=== PATIENT | female | born 1965 | race Caucasian/White ===

== ENCOUNTER 2023-03-03 10:55 | Inpatient (IN) ==
[2023-03-03] MEDS ORDERED: IOPAMIDOL 100 ML BOTTLE IV ONE (10:56)
[2023-03-03] MEDS ORDERED: ONDANSETRON 4 MG/2 ML VIAL IV ONE (11:12)
--- NOTE | 2023-03-03 11:22 | Emergency Department Note ---
HPI General Chief complaint: Headache Stated complaint: headache Time Seen by Provider: 03/03/23 10:57 Source: patient Mode of arrival: ambulatory Limitations: no limitations History of Present Illness HPI Narrative: Narrative: 57-year-old female with a history of lung cancer that is metastasized to her brain presents to the emergency department complaining of increasing headache over the past 3 days. The headache is over her entire head. It is constant and very painful. She complains of photophobia and phonophobia. She is unsure if she has had any vision changes or double vision. She denies fever or focal weakness. She complains of nausea without vomiting. Patient has been seeing an oncologist in [place] and just completed chemotherapy, this unfortunately was not successful. She has an appointment with a radiation oncologist in [place] and will be starting radiation soon. Patient does take oral morphine at home for the pain associated with her cancer. Her primary care provider is planning on increasing her dose, it is not yet been increased. Patient was initially diagnosed with lung cancer in 2018. It has since metastasized to her brain. She initially was treated with chemotherapy through [facility] oncology. Her cancer actually spread after that. Patient then researched a cancer center in [place] (cancer treatment of [facility]) and went there for treatment. She received chemotherapy there. After that she found a place in [place] and received 3 weeks of once weekly injections of chemotherapy and the tumors. She returned to this area just a few days ago and is supposed to have a follow-up CT scan a month after that treatment. Patient has been in contact with cancer treatment of [place] in [place] and is planning on following up there for radiation therapy, however she has not yet scheduled with an oncologist there. Related Data Home Medications Medication Instructions Recorded Confirmed albuterol sulfate 90 mcg/actuation 2 puff inhalation QIDP PRN Pain 03/03/23 03/03/23 aerosol inhaler bupropion HCl 300 mg 24 hr tablet, 300 mg PO QAM 03/03/23 03/03/23 extended release gabapentin 300 mg capsule 300 mg PO TID 03/03/23 03/03/23 morphine 15 mg immediate release 15 mg PO TID 03/03/23 03/03/23 tablet ondansetron HCl 8 mg tablet 8 mg PO TIDP PRN nausea 03/03/23 03/03/23 Allergies Allergy/AdvReac Type Severity Reaction Status Date / Time codeine Allergy Intermediate Hives Verified 03/03/23 13:26 hydrocodone Allergy Intermediate Hives Verified 03/03/23 13:26 oxycodone Allergy Intermediate Hives Verified 03/03/23 13:26 Review of Systems ROS ROS Narrative: Narrative: All systems ED: reviewed and negative except as stated. [facility] Narrative Patient History Narrative: Narrative: Medical/Surgical/Family History All Active Problems (Updated 03/03/23 @ 17:33 by Becka Banuelos PA-C) Headache (Acute) Chronic intractable headache (Acute) Fibromyalgia (Acute) Tobacco use disorder (Chronic) Bilateral hand pain (Acute) Benign skin lesion of multiple sites (Chronic) Cellulitis (Chronic) Pain in joint, multiple sites (Acute) Prediabetes (Chronic) Joint swelling (Chronic) Rheumatoid factor positive (Chronic) Medical History (Updated 03/03/23 @ 17:33 by Becka Banuelos PA-C) Benign skin lesion of multiple sites Bilateral hand pain Cellulitis Fibromyalgia Joint swelling Osteoarthritis of hands, bilateral Pain in joint, multiple sites Prediabetes Rheumatoid factor positive Tobacco use disorder Surgical History History of tonsillectomy Family History Mother Cancer Social History Smoking Status: Former smoker Alcohol Intake Frequency: does not drink Substance Use: does not use Exam Narrative Narrative: Narrative: General Limitations: no limitations General appearance: Present other (Patient is laying in a dark room with her eyes covered. She is cooperative and understands what is going on.) Head Head: Present atraumatic Eye Eye: Present normal appearance, PERRL and EOMI ENT ENT: Present normal oropharynx, mucous membranes moist and TM's normal bilaterally Neck Neck: Present other (Palpable tumor on the right side of patient's neck extending from the right clavicle. According to patient this is not new.) Chest Chest: Present normal inspection Respiratory Respiratory: Present normal lung sounds bilaterally Cardiovascular Cardiovascular: Present normal heart sounds Neurological Neurological: Present alert, oriented X3, CN II-XII intact and motor sensory deficit Psychiatric Psychiatric: Present normal affect Skin Skin: Present warm (WNL) Course Vital Signs Vital signs: Vital Signs Temperature 98.6 F 03/03/23 10:56 Pulse Rate 97 H 03/03/23 10:56 Respiratory Rate 19 03/03/23 10:56 Blood Pressure 131/81 03/03/23 10:56 Pulse Oximetry (%) 98 03/03/23 10:56 Oxygen Delivery Method Room Air 03/03/23 10:56 Temperature 98.6 F 03/03/23 10:56 Pulse Rate 90 03/03/23 13:16 Respiratory Rate 19 03/03/23 10:56 Blood Pressure 125/64 03/03/23 13:16 Pulse Oximetry (%) 96 03/03/23 13:16 Oxygen Delivery Method Room Air 03/03/23 10:56 MDM MDM Narrative Medical decision making narrative: Narrative: Patient has severe headache likely due to tumor. CT scan is ordered to evaluate for hydrocephalus. Patient is treated with IV morphine for pain and IV Zofran for nausea. CT scan shows changes consistent with mets to the brain. Patient did not get any pain relief with after 3 doses of morphine. A long discussion was had with the patient regarding prognosis of lung cancer with brain metastasis. Patient does not expect resolution of the cancer, but would like to be comfortable. I have discussed the patient with the hospitalist who is agreed to admit her for pain control. Lab Data Labs: Lab Results 03/03/23 Range/Units 12:08 Urine Color Straw Urine Appearance Clear (Clear) Urine pH 9.0 (5.0-9.0) Ur Specific [place] 1.006 (1.000-1.035) Urine Protein Negative (Negative) mg/dL Urine Glucose (UA) Negative (Negative) mg/dL Urine Ketones Negative (Negative) mg/dL Urine Occult Blood Negative (Negative) mg/dL Urine Nitrate Negative (Negative) Urine Bilirubin Negative (Negative) mg/dL Urine Urobilinogen Negative mg/dL Ur Leukocyte Esterase Negative (Negative) /uL Urine RBC 0 (0-3) /hpf Urine WBC < 1 (0-4) /hpf Ur Squamous Epith Cells 1 (0-4) /hpf Urine Bacteria None (0) /hpf Urine Mucus Few A (None) /hpf Ur Culture Indicated? No Discharge Plan Patient/Caregiver Discharge Instructions Pt seen by PRINCIPAL CYBER ENGINEER/PA only: Yes Clinical Impression: Headache, Chronic intractable headache Patient Disposition: Xfer As Inpt ([facility]) Follow up with: Demetria Moser [Primary Care Provider] - Prescriptions: No Action morphine 15 mg tablet 15 mg PO TID albuterol sulfate 90 mcg/actuation HFA aerosol inhaler 2 puff INHALATION QIDP PRN (Reason: Pain) bupropion HCl 300 mg tablet extended release 24 hr 300 mg PO QAM gabapentin 300 mg capsule 300 mg PO TID ondansetron HCl 8 mg tablet 8 mg PO TIDP PRN (Reason: nausea)
[2023-03-03] MEDS: morphine 2 MG/ML VIAL IV PRN ×5 (12:09→15:33)
--- NOTE | 2023-03-03 14:07 | Cat Scan Report ---
CLINICAL INFORMATION: History of lung carcinoma. Evaluate for brain metastases. Headache COMPARISON: Brain MRI 12/28/2019 TECHNIQUE: 2.5 mm helical slices were obtained in the skull base to vertex prior to and after the administration of 80 cc of Isovue-370. Following reconstruction, axial reformatted images were reviewed at bone and parenchymal windows. The exam was performed using radiation dose optimization techniques including, but not limited to, automated exposure control, adjustment of the mA and/or kV according to patient size and use of iterative reconstruction technique. FINDINGS: The ventricles, sulci, fissures, and cisterns are normal in size and configuration. No extra-axial fluid collections are identified. Scattered enhancing cerebral lesions are compatible with metastases from known lung carcinoma: 11.6 mm ring-enhancing lesion in the posterior right temporal lobe with moderate surrounding vasogenic edema, 18 mm enhancing lesion with adjacent vasogenic edema in the posterior right frontal lobe near vertex, 7 mm enhancing lesion with minimal surrounding edema in the posterior left frontal lobe near vertex and 6 mm in the left frontal parietal junction with no significant edema. Bone windows show no osseous abnormality. IMPRESSION: Scattered enhancing cerebral lesions compatible with metastatic disease from known lung carcinoma. These are new from the 2019 brain MRI Interpreted and Authenticated by: Woo Reagan 03/03/23
[2023-03-03 14:09] LABS: Appearance,Urine CLEAR (Clear); Bilirubin,Urine Negative (Negative); Color,Urine STRAW; Culture Indicated,Urine No; Glucose,Urine (UA) Negative (Negative); Ketones,Urine Negative (Negative); Leukocyte Esterase,Urine Negative /uL (Negative); Mucus,Urine FEW /hpf; Nitrate,Urine Negative (Negative); Protein,Urine Negative (Negative); Specific Gravity,Urine 1.006 (1.000-1.035); Urine Blood Negative (Negative); Urine RBC 0 /hpf (0-3); Urine Squamous Epithelial Cell 1 /hpf (0-4); Urine WBC < 1 /hpf (0-4); Urobilinogen,Urine Negative
--- NOTE | 2023-03-03 16:33 | Internal Med History&Physical ---
HPI History of Present Illness Patient information: Note initiated : 03/03/23 at 4:21 pm Service Date, if different from initiated Date: [] Patient: Cinthia Melgar 57 y/o F admitted on for headache. Chief Complaint: [] History of present illness: Ms. Melgar is a 57 year old female with a history of lung cancer with brain metastasis presented to the emergency department for severe headache. The patient has received chemotherapy for lung cancer however the cancer has progressed. The plan was for the patient to meet with a radiation oncologist to discuss palliative radiation treatment. The patient has been taking oral morphine for pain secondary to cancer however it has become less and less effective. In the emergency department, the patient had a CT head with and without IV contrast that showed scattered enhancing cerebral lesions compatible with metastatic disease. Hospital medicine was consulted for admission for pain control. Goals of care were discussed with the patient at bedside in detail. I told the patient that if she wanted to pursue radiation therapy she would need to be transferred to another hospital as we do not have that capability. The patient says that she just wants her pain controlled and would like to discharge home with hospice if her pain can be controlled on oral medications. The patient clearly stated that she would not want to be resuscitated or intubated. We discussed dexamethasone for cerebral edema associated with brain metastasis, the patient is okay for a trial of dexamethasone. The patient will be admitted for comfort cares and a trial of dexamethasone. Review of systems Neurological: Severe diffuse headache, no focal weakness or numbness Psychiatric: no anxiety or depression Physical exam Head: Atraumatic, normal inspection. Eyes: normal appearance, no scleral icterus. Neck: full ROM Respiratory: no respiratory distress. Cardiovascular: normal rate GI/Abdominal: Nondistended Extremities: full range of motion, nontender. Neurological: intact motor, intact sensation. Psychiatric: Anxious PFSH PFSH All Active Problems (Updated 10/21/18 @ 13:40 by Blake Thomas MD) Fibromyalgia (Acute) Tobacco use disorder (Chronic) Bilateral hand pain (Acute) Benign skin lesion of multiple sites (Chronic) Cellulitis (Chronic) Pain in joint, multiple sites (Acute) Prediabetes (Chronic) Joint swelling (Chronic) Rheumatoid factor positive (Chronic) Medical History (Updated 10/21/18 @ 13:40 by Blake Thomas MD) Benign skin lesion of multiple sites Bilateral hand pain Cellulitis Fibromyalgia Joint swelling Osteoarthritis of hands, bilateral Pain in joint, multiple sites Prediabetes Rheumatoid factor positive Tobacco use disorder Surgical History History of tonsillectomy Family History Mother Cancer Social History (Updated 10/21/18 @ 13:44 by Blake Thomas MD) marital status: occupational status: employed physical activity: walking smoking status: Former smoker alcohol intake frequency: does not drink substance use type: does not use MEDS/ALLERGIES Home Medications and Allergies Home Medications Medication Instructions Recorded Confirmed Type akibnso-uwbntmhxtwlpa-ltdghadt See Rx Instructions PO .COMPLEX PRN 09/20/18 10/21/18 History [Pamprin Max] meloxicam 15 mg tablet 15 mg PO QDAY 09/20/18 10/21/18 History tramadol 50 mg tablet 50 mg PO TID PRN pain 09/20/18 10/21/18 History morphine 15 mg immediate release 15 mg PO TID 03/03/23 03/03/23 History tablet Allergies Allergy/AdvReac Type Severity Reaction Status Date / Time codeine Allergy Intermediate Hives Verified 03/03/23 13:26 hydrocodone Allergy Intermediate Hives Verified 03/03/23 13:26 oxycodone Allergy Intermediate Hives Verified 03/03/23 13:26 EXAM Constitutional Vitals: Temp Pulse Resp BP Pulse Ox O2 Del Method 98.6 F 76 19 128/84 98 Room Air 03/03/23 10:56 03/03/23 15:46 03/03/23 10:56 03/03/23 15:46 03/03/23 15:46 03/03/23 10:56 DATA Data Completed and Pending Labs: Labs from last 24 hours 03/03/23 12:08 Urine Color Straw Urine Appearance Clear Urine pH 9.0 Ur Specific [place] 1.006 Urine Protein Negative Urine Glucose (UA) Negative Urine Ketones Negative Urine Occult Blood Negative Urine Nitrate Negative Urine Bilirubin Negative Urine Urobilinogen Negative Ur Leukocyte Esterase Negative Urine RBC 0 Urine WBC < 1 Ur Squamous Epith Cells 1 Urine Bacteria None Urine Mucus Few A Ur Culture Indicated? No A/P Narrative A/P Narrative: Assessment: 57-year-old female with a history of metastatic lung carcinoma inc luding brain metastasis admitted for comfort cares for intractable headache likely secondary to enlarging brain metastasis. Plan -Admit for pain control with multimodal analgesics. -Dexamethasone IV for cerebral edema secondary to brain metastasis. -CODE STATUS: DNR/DNI -Disposition: Admit to inpatient MedSurg, if pain can be controlled with oral medications then the patient would like to discharge home with hospice. Time Spent With Patient Time: Total time spent is greater than 50% in coordination of care (as documented) at patient's floor/unit and/or counseling patient:
[2023-03-03] MEDS ORDERED: ALBUTEROL SULFATE 2.5 MG/3 ML NEBULIZER NEB PRN (17:49)
[2023-03-03] MEDS ORDERED: LORazepam 2 MG/ML VIAL IV PRN (17:49)
[2023-03-03] MEDS ORDERED: DEXAMETHASONE 10 MG/ML VIAL IV ONE (17:49)
[2023-03-03] MEDS ORDERED: ACETAMINOPHEN 325 MG TABLET PO PRN (17:49)
[2023-03-03] MEDS ORDERED: ONDANSETRON 4 MG/2 ML VIAL IV PRN (17:49)
[2023-03-03] MEDS: KETOROLAC 30 MG/ML VIAL IV SCH (18:41)
[2023-03-03] MEDS: HYDROmorphone 1 MG/ML SYRINGE IV PRN (18:42)
[2023-03-03] MEDS: ONDANSETRON 4 MG/2 ML VIAL IV PRN (18:47)
[2023-03-03] MEDS: SENNOSIDES/DOCUSATE SODIUM 1 TAB TABLET PO SCH (20:23)
[2023-03-03] MEDS: morphine 15 MG TABLET PO PRN (20:23)
[2023-03-03] MEDS: 0.9 % SODIUM CHLORIDE 10 ML SYRINGE IV SCH (20:24)
[2023-03-03] MEDS ORDERED: 0.9 % SODIUM CHLORIDE 10 ML SYRINGE IV SCH (22:00)
[2023-03-04] MEDS: KETOROLAC 30 MG/ML VIAL IV SCH ×4 (00:04→17:40)
[2023-03-04] MEDS: DEXAMETHASONE 4 MG/ML VIAL IV SCH ×5 (00:04→23:05)
[2023-03-04] MEDS: morphine 15 MG TABLET PO PRN ×5 (01:51→20:59)
[2023-03-04] MEDS: HYDROmorphone 1 MG/ML SYRINGE IV PRN ×9 (04:35→21:04)
[2023-03-04] MEDS: 0.9 % SODIUM CHLORIDE 10 ML SYRINGE IV SCH ×3 (05:59→21:34)
[2023-03-04] MEDS: OMEPRAZOLE 20 MG CAPSULE PO SCH (08:33)
[2023-03-04] MEDS: POLYETHYLENE GLYCOL 3350 17 GM PACKET PO SCH (08:33)
[2023-03-04] MEDS: SENNOSIDES/DOCUSATE SODIUM 1 TAB TABLET PO SCH ×2 (08:34→22:12)
--- NOTE | 2023-03-04 10:05 | Internal Med Progress Note ---
SUBJECTIVE Subjective Patient information: Note initiated : 03/04/23 at 10:02 am Service Date, if different from initiated Date: [] Patient: Cinthia Melgar 57 y/o F admitted on 03/03/23 for headache. Chief Complaint: [] Interval history: Ms. Melgar is a 57 year old female with a history of lung cancer with brain metastasis presented to the emergency department for severe headache. The patient has received chemotherapy for lung cancer however the cancer has progressed. The plan was for the patient to meet with a radiation oncologist to discuss palliative radiation treatment. The patient has been taking oral morphine for pain secondary to cancer however it has become less and less effective. In the emergency department, the patient had a CT head with and without IV contrast that showed scattered enhancing cerebral lesions compatible with metastatic disease. Hospital medicine was consulted for admission for pain control. Goals of care were discussed with the patient at bedside in detail. I told the patient that if she wanted to pursue radiation therapy she would need to be transferred to another hospital as we do not have that capability. The patient says that she just wants her pain controlled and would like to discharge home with hospice if her pain can be controlled on oral medications. The patient clearly stated that she would not want to be resuscitated or intubated. We discussed dexamethasone for cerebral edema associated with brain metastasis, the patient is okay for a trial of dexamethasone. The patient will be admitted for comfort cares and a trial of dexamethasone. 03/04 Patient's headache has improved since yesterday, requiring high doses of IV Dilaudid. The patient asked to speak with hospice, case management will look into setting up an appointment. We will continue the patient's current pain regimen unchanged today. Physical exam Head: Atraumatic, normal inspection. Eyes: normal appearance, no scleral icterus. Neck: full ROM Respiratory: no respiratory distress. Cardiovascular: normal rate GI/Abdominal: Nondistended Extremities: full range of motion, nontender. Neurological: intact motor, intact sensation. Psychiatric: Anxious Constitutional Vitals: Vital Signs Temp Pulse Resp BP Pulse Ox O2 Del Method O2 Flow Rate 98.3 F 86 14 113/73 99 Nasal Cannula 2 03/03/23 19:00 03/04/23 08:00 03/04/23 08:00 03/04/23 08:00 03/04/23 08:00 03/04/23 08:00 03/04/23 08:00 Period Temp Pulse Resp BP Sys/Juares Pulse Ox O2 Del Method O2 Flow Rate Last 24 Hr 98.3 F-99.1 F 65-97 14-19 113-137/64-94 91-99 Nasal Cannula- Room Air 2 Intake and Output 03/03/23 03/04/23 03/04/23 19:59 03:59 11:59 Intake Total 500 Balance 500 Weight 68.946 kg 68.946 kg Intake & Output: Intake & Output 03/03/23 03/04/23 03/04/23 19:59 03:59 11:59 Intake Total 500 Balance 500 Weight 68.946 kg 68.946 kg Intake: Oral 500 Other: Meal Chicken noodle soup/jello Percent of Meal Consumed 100% Feeding Ability Independent # Voids 2 OBJ DATA Labs Labs: Abnormal Lab Results 03/03/23 12:08 Urine Mucus Few A Meds: Medications Acetaminophen (Acetaminophen 325 Mg Tablet) 650 mg PO Q6HP PRN; Protocol PRN Reason: Per Pain Protocol/Fever > 101 Albuterol Sulfate (Albuterol Sulfate 2.5 Mg/3 Ml Nebulizer) 2.5 mg NEB Q2HP PRN PRN Reason: Shortness Of Breath Dexamethasone (Dexamethasone 4 Mg/Ml Vial) 4 mg IV Q6H [facility] Last Admin: 03/04/23 05:58 Dose: 4 mg Hydromorphone HCl (Hydromorphone 1 Mg/Ml Syringe) 0.5 - 2 mg IV Q1HP PRN; Protocol PRN Reason: Per Pain Protocol Last Admin: 03/04/23 08:45 Dose: 2 mg Ketorolac Tromethamine (Ketorolac 30 Mg/Ml Vial) 15 mg IV Q6 KYLIE Stop: 03/05/23 12:01 Last Admin: 03/04/23 05:58 Dose: 15 mg Lorazepam (Lorazepam 2 Mg/Ml Vial) 0 mg IV Q1HP PRN; Protocol PRN Reason: ANXIETY/SEDATION Morphine Sulfate (Morphine 15 Mg Tablet) 30 mg PO Q4HP PRN; Protocol PRN Reason: Per Pain Protocol Last Admin: 03/04/23 07:32 Dose: 30 mg Omeprazole (Omeprazole 20 Mg Capsule) 40 mg PO ACB [facility] Last Admin: 03/04/23 08:33 Dose: 40 mg Ondansetron HCl (Ondansetron 4 Mg/2 Ml Vial) 4 mg IV Q4HP PRN; Protocol PRN Reason: Nausea And Vomiting Last Admin: 03/03/23 18:47 Dose: 4 mg Polyethylene Glycol (Polyethylene Glycol 3350 17 Gm Packet) 17 gm PO DAILY [facility] Last Admin: 03/04/23 08:33 Dose: 17 gm Senna/Docusate Sodium (Sennosides/Docusate Sodium 1 Tab Tablet) 1 tab PO BID [facility] Last Admin: 03/04/23 08:34 Dose: 1 tab Sodium Chloride (0.9 % Sodium Chloride 10 Ml Syringe) 10 ml IV Q8 [facility] Last Admin: 03/04/23 05:59 Dose: 10 ml A/P Narrative A/P Narrative: Assessment: 57-year-old female with a history of metastatic lung carcinoma including brain metastasis admitted for comfort cares for intractable headache likely secondary to enlarging brain metastasis. Plan -Multimodal analgesics for severe headache. -Dexamethasone IV for cerebral edema secondary to brain metastasis. -Case management following, hospice consult requested. -CODE STATUS: DNR/DNI -Disposition: Inpatient MedSurg for intractable pain, if pain can be controlled with oral medications then the patient would like to discharge home with hospice. Time Spent With Patient Time: Total time spent is greater than 50% in coordination of care (as documented) at patient's floor/unit and/or counseling patient:
[2023-03-04] MEDS ORDERED: diphenhydrAMINE 25 MG CAPSULE PO PRN (17:59)
[2023-03-05] MEDS: KETOROLAC 30 MG/ML VIAL IV SCH ×3 (03:17→12:39)
[2023-03-05] MEDS: DEXAMETHASONE 4 MG/ML VIAL IV SCH ×4 (05:49→23:04)
[2023-03-05] MEDS: OMEPRAZOLE 20 MG CAPSULE PO SCH (07:42)
--- NOTE | 2023-03-05 08:55 | Internal Med Progress Note ---
SUBJECTIVE Subjective Patient information: Note initiated : 03/05/23 at 8:52 am Service Date, if different from initiated Date: [] Patient: Cinthia Melgar 57 y/o F admitted on 03/03/23 for headache. Chief Complaint: [] Principal diagnosis: Metastatic lung CA Interval history: Ms. Melgar is a 57 year old female with a history of lung cancer with brain metastasis presented to the emergency department for severe headache. The patient has received chemotherapy for lung cancer however the cancer has progressed. The plan was for the patient to meet with a radiation oncologist to discuss palliative radiation treatment. The patient has been taking oral morphine for pain secondary to cancer however it has become less and less effective. In the emergency department, the patient had a CT head with and without IV contrast that showed scattered enhancing cerebral lesions compatible with metastatic disease. Hospital medicine was consulted for admission for pain control. Goals of care were discussed with the patient at bedside in detail. I told the patient that if she wanted to pursue radiation therapy she would need to be transferred to another hospital as we do not have that capability. The patient says that she just wants her pain controlled and would like to discharge home with hospice if her pain can be controlled on oral medications. The patient clearly stated that she would not want to be resuscitated or intubated. We discussed dexamethasone for cerebral edema associated with brain metastasis, the patient is okay for a trial of dexamethasone. The patient will be admitted for comfort cares and a trial of dexamethasone. 03/04 Patient's headache has improved since yesterday, requiring high doses of IV Dilaudid. The patient asked to speak with hospice, case management will look into setting up an appointment. We will continue the patient's current pain regimen unchanged today. 03/05: The patient was resting in bed while eating breakfast. She continues to complain of the headache. She is hoping to get whole brain radiation in an outpatient setting at [facility] next week. Constitutional Vitals: Vital Signs Temp Pulse Resp BP Pulse Ox O2 Del Method O2 Flow Rate 97.7 F 80 18 105/69 97 Nasal Cannula 2 03/05/23 07:39 03/05/23 07:39 03/05/23 07:39 03/05/23 07:39 03/05/23 07:39 03/05/23 07:39 03/05/23 07:39 Period Temp Pulse Resp BP Sys/Juares Pulse Ox O2 Del Method O2 Flow Rate Last 24 Hr 97.7 F-98.8 F 72-88 14-19 100-127/65-76 97-100 Nasal Cannula- Room Air 2-2 Intake and Output 03/04/23 03/05/23 03/05/23 19:59 03:59 11:59 Intake Total 1040 Balance 1040 Weight 69.967 kg Intake & Output: Intake & Output 03/04/23 03/05/23 03/05/23 19:59 03:59 11:59 Intake Total 1040 Balance 1040 Weight 69.967 kg Intake: Oral 1040 Other: # Voids 2 Head Head exam: Present atraumatic and normal inspection Eye Eye exam: Present normal appearance ENT ENT exam: Present mucous membranes moist, normal exam and normal external ear exam Neck Neck exam: Present normal inspection Respiratory Respiratory exam: Present normal respiratory exam Cardiovascular Cardiovascular exam: Present normal rate and rhythm GI/Abdominal GI/Abdominal exam: Present normal bowel sounds Back Exam Back exam: Present normal inspection Neurological Exam Neurological exam: Present alert and oriented X3 Skin Skin exam: Present intact and warm OBJ DATA Labs Labs: Abnormal Lab Results 03/03/23 12:08 Urine Mucus Few A Meds: Medications Acetaminophen (Acetaminophen 325 Mg Tablet) 650 mg PO Q6HP PRN; Protocol PRN Reason: Per Pain Protocol/Fever > 101 Albuterol Sulfate (Albuterol Sulfate 2.5 Mg/3 Ml Nebulizer) 2.5 mg NEB Q2HP PRN PRN Reason: Shortness Of Breath Dexamethasone (Dexamethasone 4 Mg/Ml Vial) 4 mg IV Q6H [facility] Last Admin: 03/05/23 05:49 Dose: 4 mg Diphenhydramine HCl (Diphenhydramine 25 Mg Capsule) 25 mg PO Q6HP PRN PRN Reason: Allergic Symptoms Last Admin: 03/04/23 18:31 Dose: 25 mg Hydromorphone HCl (Hydromorphone 1 Mg/Ml Syringe) 0.5 - 2 mg IV Q1HP PRN; Protocol PRN Reason: Per Pain Protocol Last Admin: 03/04/23 21:04 Dose: 2 mg Ketorolac Tromethamine (Ketorolac 30 Mg/Ml Vial) 15 mg IV Q6 KYLIE Stop: 03/05/23 12:01 Last Admin: 03/05/23 05:49 Dose: 15 mg Lorazepam (Lorazepam 2 Mg/Ml Vial) 0 mg IV Q1HP PRN; Protocol PRN Reason: ANXIETY/SEDATION Last Admin: 03/04/23 23:04 Dose: 2 mg Morphine Sulfate (Morphine 15 Mg Tablet) 30 mg PO Q4HP PRN; Protocol PRN Reason: Per Pain Protocol Last Admin: 03/04/23 20:59 Dose: 30 mg Omeprazole (Omeprazole 20 Mg Capsule) 40 mg PO ACB [facility] Last Admin: 03/05/23 07:42 Dose: 40 mg Ondansetron HCl (Ondansetron 4 Mg/2 Ml Vial) 4 mg IV Q4HP PRN; Protocol PRN Reason: Nausea And Vomiting Last Admin: 03/03/23 18:47 Dose: 4 mg Polyethylene Glycol (Polyethylene Glycol 3350 17 Gm Packet) 17 gm PO DAILY [facility] Last Admin: 03/04/23 08:33 Dose: 17 gm Senna/Docusate Sodium (Sennosides/Docusate Sodium 1 Tab Tablet) 1 tab PO BID [facility] Last Admin: 03/04/23 22:12 Dose: 1 tab Sodium Chloride (0.9 % Sodium Chloride 10 Ml Syringe) 10 ml IV Q8 [facility] Last Admin: 03/04/23 21:34 Dose: 10 ml A/P Narrative A/P Narrative: Assessment: 57-year-old female with a history of metastatic lung carcinoma including brain metastasis admitted for comfort cares for intractable headache likely secondary to enlarging brain metastasis. Plan -Multimodal analgesics for severe headache. -Dexamethasone IV for cerebral edema secondary to brain metastasis. -Case management following, hospice consult requested. -CODE STATUS: DNR/DNI -Disposition: Inpatient MedSurg for intractable pain, if pain can be controlled with oral medications then the patient would like to discharge home with hospice. Time Spent With Patient Time: Total time spent is greater than 50% in coordination of care (as documented) at patient's floor/unit and/or counseling patient: Subsequent: Total time with patient: 25 - 34 minutes
[2023-03-05] MEDS: SENNOSIDES/DOCUSATE SODIUM 1 TAB TABLET PO SCH ×2 (09:14→20:30)
[2023-03-05] MEDS: POLYETHYLENE GLYCOL 3350 17 GM PACKET PO SCH (09:14)
[2023-03-05] MEDS: morphine 15 MG TABLET PO PRN ×3 (09:23→20:08)
[2023-03-05] MEDS: 0.9 % SODIUM CHLORIDE 10 ML SYRINGE IV SCH ×3 (10:21→23:11)
[2023-03-05] MEDS: HYDROmorphone 1 MG/ML SYRINGE IV PRN ×3 (16:24→23:04)
[2023-03-06] MEDS: morphine 15 MG TABLET PO PRN ×3 (04:03→13:40)
[2023-03-06] MEDS: DEXAMETHASONE 4 MG/ML VIAL IV SCH ×2 (04:04→11:59)
[2023-03-06] MEDS: 0.9 % SODIUM CHLORIDE 10 ML SYRINGE IV SCH ×4 (06:38→14:18)
[2023-03-06] MEDS: HYDROmorphone 1 MG/ML SYRINGE IV PRN ×6 (07:47→13:39)
[2023-03-06] MEDS: OMEPRAZOLE 20 MG CAPSULE PO SCH (07:47)
[2023-03-06] MEDS: POLYETHYLENE GLYCOL 3350 17 GM PACKET PO SCH (09:23)
[2023-03-06] MEDS: SENNOSIDES/DOCUSATE SODIUM 1 TAB TABLET PO SCH (09:23)
--- NOTE | 2023-03-06 12:46 | Discharge Summary ---
Discharge Provider Provider IMPORTANT FOLLOW-UP INFORMATION FOR PCP: 1. Hospice will be established Thursday 2. Scripts filled for the weekend (Dilaudid, Morphine, and Lorazepam) Patient information: Note initiated : 03/06/23 at 12:46 pm Service Date, if different from initiated Date: [] Patient: Cinthia Melgar 57 y/o F admitted on 03/03/23 for headache. Chief Complaint: [] Date of admission: 03/03/23 17:31 Discharge date: 03/06/23 Primary care physician: Demetria Moser Consults: 03/03/23 14:25 Consult to Physician [CONS] Stat Comment: Consulting Provider: Dick Griggs Reason For Exam: Physician to Consult Attending physician on discharge: Jasmit Vish COURSE Hospital Course Hospital course: Interval history: Ms. Melgar is a 57 year old female with a history of lung cancer with brain metastasis presented to the emergency department for severe headache. The patient has received chemotherapy for lung cancer however the cancer has progressed. The plan was for the patient to meet with a radiation oncologist to discuss palliative radiation treatment. The patient has been taking oral morphine for pain secondary to cancer however it has become less and less effective. In the emergency department, the patient had a CT head with and without IV contrast that showed scattered enhancing cerebral lesions compatible with metastatic disease. Hospital medicine was consulted for admission for pain control. Goals of care were discussed with the patient at bedside in detail. I told the patient that if she wanted to pursue radiation therapy she would need to be transferred to another hospital as we do not have that capability. The patient says that she just wants her pain controlled and would like to discharge home with hospice if her pain can be controlled on oral medications. The patient clearly stated that she would not want to be resuscitated or intubated. We discussed dexamethasone for cerebral edema associated with brain metastasis, the patient is okay for a trial of dexamethasone. The patient will be admitted for comfort cares and a trial of dexamethasone. 03/04 Patient's headache has improved since yesterday, requiring high doses of IV Dilaudid. The patient asked to speak with hospice, case management will look into setting up an appointment. We will continue the patient's current pain regimen unchanged today. 03/05: The patient was resting in bed while eating breakfast. She continues to complain of the headache. She is hoping to get whole brain radiation in an outpatient setting at [facility] next week. 03/06: The patient will be discharged with home hospice that will open up on Thursday. Interim prescriptions will be filled for over the weekend. Discharge diagnosis: Metastatic lung cancer with brain metastasis Secondary discharge diagnosis: Comfort measures only Time Spent with Patient Time attestation: Total time spent providing and/or coordinating discharge services: Time spent: Greater than 30 minutes EXAM Constitutional Vitals: Temp Pulse Resp BP Pulse Ox O2 Del Method O2 Flow Rate 98.2 F 70 16 130/76 98 Room Air 2 03/06/23 08:00 03/06/23 08:00 03/06/23 08:00 03/06/23 08:00 03/06/23 08:00 03/06/23 08:00 03/05/23 07:39 General appearance: average body habitus Head Head exam: Present atraumatic, normal inspection and normocephalic Eye Eye exam: Present EOMI, normal appearance and PERRL; Absent conjunctival injection ENT ENT exam: Present normal exam; Absent mucous membranes dry Neck Neck exam: Present full ROM; Absent lymphadenopathy Respiratory Respiratory exam: Present normal respiratory exam and CTAB; Absent decreased breath sounds, respiratory distress or wheezes Cardiovascular Cardiovascular exam: Present normal rate and rhythm and RRR; Absent JVD GI/Abdominal GI/Abdominal exam: Present normal bowel sounds and soft; Absent diminished bowel sounds, distended, guarding, mass, rebound or tenderness Neurological Exam Neurological exam: Present alert, CN II-XII intact and oriented X3 Psychiatric Psychiatric exam: Present normal affect and normal mood Skin Skin exam: Present intact and warm; Absent erythema, pallor, petechiae or rash Discharge Plan Patient/Caregiver Discharge Instructions Activity: increase activity as tolerated Instructions: Hospice Care (GEN) Prescriptions: Continued morphine 15 mg tablet 15 mg PO TID albuterol sulfate 90 mcg/actuation HFA aerosol inhaler 2 puff INHALATION QIDP PRN (Reason: SOB) bupropion HCl 300 mg tablet extended release 24 hr 300 mg PO QAM gabapentin 300 mg capsule 100 mg PO TID ondansetron HCl 8 mg tablet 8 mg PO TIDP PRN (Reason: nausea) Follow Up Plan Follow up with: Demetria oMser [Primary Care Provider] - Patient Disposition: Hospice - Home Prognosis: Fair Rehab Potential: Undetermined I certify that the patient requires SNF services: No Overall status at discharge: patient is not back to baseline Discharge Orders: Discharge Order (Routine); Ordered 03/06/23 Ordered By: Gregg Wahl
[2023-03-06] MEDS ORDERED: HEPARIN SODIUM,PORCINE/PF 500 UNIT/5 ML SYRINGE IV ONE (13:56)
[2023-03-06] MEDS: ONDANSETRON 4 MG/2 ML VIAL IV PRN (14:18)
== END 2023-03-06 14:32 | disposition hospice, home (50) | DRG 181 ==
LOC: ED 10:55 → MEDSUR 10:55 → OBSVTOIN 17:31 → MEDSUR 17:35
PROVIDERS: ADMIT Internal Medicine; ATTEND Student in an Organized Health Care Education/Training Program